=== PATIENT | female | born 1985 | race Caucasian/White ===

== ENCOUNTER 2019-02-28 01:17 | Inpatient (IN) | payer MEDICAID ==
[2019-02-28] VITALS (19 sets, daily range): BP systolic 88–121
[~2019-02-28] VITALS: Ht 152.4 cm; Wt 44.0 kg
[2019-02-28] MEDS ORDERED: LORazepam 2 MG/ML VIAL IVP ONE ×3 (02:00→04:00)
[2019-02-28] MEDS ORDERED: LORazepam 2 MG/ML VIAL ONE ×2 (02:08→04:10)
[2019-02-28 02:29] LABS: BASOPHILS # (AUTO) 0.3 K/uL (0.0-0.2); BASOPHILS % (AUTO) 1.1 % (0.0-2.0); EOSINOPHILS % (AUTO) 0.1 % (0.0-4.0); HEMATOCRIT 28.8 % (36-48); HEMOGLOBIN 8.3 g/dL (12.0-16.0); LYMPHOCYTES # (AUTO) 2.9 K/uL (1.0-5.5); LYMPHOCYTES % (AUTO) 11.7 % (20.5-51.5); MEAN CORPUSCULAR HEMOGLOBIN 19 pg (27-31); MEAN CORPUSCULAR HGB CONC 29 % (32-36); MEAN CORPUSCULAR VOLUME 67 fL (79.0-98.0); MONOCYTES # (AUTO) 1.8 K/uL (0.0-1.0); MONOCYTES % (AUTO) 7.2 % (1.7-9.3); NEUTROPHILS # (AUTO) 19.6 K/uL (1.8-7.7); NEUTROPHILS % (AUTO) 79.9 % (40.0-70.0); PLATELET COUNT (AUTO) 347 K/uL (130-430); RED BLOOD CELL COUNT(AUTO) 4.29 MIL/uL (4.2-6.2); RED CELL DISTRIBUTION WIDTH 18.1 % (9.0-15.0); WHITE BLOOD COUNT (AUTO) 24.5 K/uL (4.8-10.8)
[2019-02-28] MEDS ORDERED: ALBUTEROL SULFATE 0.083% 2.5 MG/3 ML VIAL.NEB INH ONE (02:45)
[2019-02-28 02:51] LABS: INR 1.1 (0.8-1.2)
[2019-02-28 02:55] LABS: CREATININE 1.03 mg/dL (0.55-1.30); POTASSIUM 3.9 mmol/L (3.5-5.1); TOTAL BILIRUBIN 0.3 mg/dL (0.0-1.0)
[2019-02-28 03:14] LABS: ALBUMIN 3.6 g/dL (3.4-4.8); CALCIUM 8.5 mg/dL (8.4-11.0)
[2019-02-28] MEDS ORDERED: NACL 0.9% 1,000 ML IV ONE ×2 (03:15)
[2019-02-28 03:40] LABS: BILIRUBIN,URINE NEGATIVE (NEGATIVE); BLOOD, URINE NEGATIVE (NEGATIVE); CLARITY/URINE CLEAR (CLEAR); COLOR,URINE YELLOW (YELLOW); GLUCOSE,URINE NEGATIVE (NEGATIVE); KETONES,URINE 1+ (NEGATIVE); LEUKOCYTE ESTERASE ,URINE NEGATIVE (NEGATIVE); NITRITE, URINE NEGATIVE (NEGATIVE); PH,URINE 5.5 (5.0-8.0); PROTEIN URINE 1+ (NEGATIVE); UROBILINOGEN,URINE 0.2 (0.2-1.0)
[2019-02-28 03:46] LABS: BACTERIA,URINE FEW /HPF (None Seen); RBC,URINE 0-3 /HPF (0-3); WBC,URINE 0-3 /HPF (0-3)
[2019-02-28] MEDS ORDERED: ACETAMINOPHEN 325 MG TABLET PO PRN (04:30)
[2019-02-28] MEDS ORDERED: ALBUTEROL SULFATE 0.083% 2.5 MG/3 ML VIAL.NEB INH PRN (04:30)
[2019-02-28] MEDS ORDERED: LORazepam 2 MG/ML VIAL IVP PRN (04:30)
[2019-02-28] MEDS ORDERED: ONDANSETRON HCL 4 MG/2 ML VIAL IVP PRN (04:30)
[2019-02-28] MEDS ORDERED: PIPERACILLIN/TAZO 3.375/DEX-IS 50 ML IV SCH (05:00)
[2019-02-28] MEDS ORDERED: levETIRAcetam 1,000 MG IV BAG 100 ML IV SCH (05:00)
[2019-02-28] MEDS ORDERED: PIPERACILLIN/TAZOBACTAM 3.375 GM/VIAL (ZOSYN) IV ONE (06:13)
[2019-02-28] MEDS: NACL 0.9% 1,000 ML IV SCH ×3 (07:14→21:50)
[2019-02-28] MEDS ORDERED: CARB100T PO (07:43)
[2019-02-28] MEDS ORDERED: LEVE500T9 PO (07:43)
[2019-02-28] MEDS ORDERED: DEPS125 PO (07:43)
[2019-02-28 08:11] LABS: BASOPHILS # (AUTO) 0.1 K/uL (0.0-0.2); BASOPHILS % (AUTO) 0.6 % (0.0-2.0); EOSINOPHILS % (AUTO) 0.2 % (0.0-4.0); HEMATOCRIT 22.2 % (36-48); HEMOGLOBIN 7.1 g/dL (12.0-16.0); LYMPHOCYTES # (AUTO) 1.7 K/uL (1.0-5.5); LYMPHOCYTES % (AUTO) 19.2 % (20.5-51.5); MEAN CORPUSCULAR HEMOGLOBIN 20 pg (27-31); MEAN CORPUSCULAR HGB CONC 32 % (32-36); MEAN CORPUSCULAR VOLUME 64 fL (79.0-98.0); MONOCYTES # (AUTO) 0.7 K/uL (0.0-1.0); MONOCYTES % (AUTO) 8.6 % (1.7-9.3); NEUTROPHILS # (AUTO) 6.2 K/uL (1.8-7.7); NEUTROPHILS % (AUTO) 71.4 % (40.0-70.0); PLATELET COUNT (AUTO) 263 K/uL (130-430); RED BLOOD CELL COUNT(AUTO) 3.46 MIL/uL (4.2-6.2); RED CELL DISTRIBUTION WIDTH 17.7 % (9.0-15.0); WHITE BLOOD COUNT (AUTO) 8.7 K/uL (4.8-10.8)
[2019-02-28 08:16] LABS: CALCIUM 7.7 mg/dL (8.4-11.0); CREATININE 0.57 mg/dL (0.55-1.30); POTASSIUM 3.5 mmol/L (3.5-5.1)
[2019-02-28 08:22] LABS: ALBUMIN 2.9 g/dL (3.4-4.8); TOTAL BILIRUBIN 0.3 mg/dL (0.0-1.0)
[2019-02-28] MEDS: PIPERACILLIN/TAZO 3.375/DEX-IS 50 ML IV SCH ×3 (13:08→23:18)
[2019-02-28] MEDS ORDERED: ACETAMINOPHEN 325 MG SUPP.RECT RC PRN (15:15)
[2019-02-28] MEDS ORDERED: D5W IV ONE (15:30)
[2019-02-28] MEDS ORDERED: VALPROATE SODIUM IV ONE (15:30)
[2019-02-28] MEDS ORDERED: GASTROGRAFIN 120 ML ONE (18:52)
[2019-02-28] MEDS ORDERED: DIVALPROEX SODIUM 125 MG CAP.(DEPAKOTE SPRINKLE) PO SCH (21:00)
[2019-02-28] MEDS ORDERED: FAMOTIDINE 20 MG TABLET PO SCH (21:00)
[2019-02-28] MEDS ORDERED: levETIRAcetam 500 MG TABLET PO SCH (21:00)
[2019-02-28] MEDS: VALPROATE SODIUM 500 MG in D5W 100 ML IV SCH (21:48)
[2019-02-28] MEDS: FAMOTIDINE PF 20 MG/2 ML VIAL IVP SCH (21:49)
[2019-02-28] MEDS: levETIRAcetam 1,000 MG IV BAG 100 ML IV SCH (21:49)
[2019-02-28] MEDS ORDERED: VALPROATE SODIUM 100 MG/ML VIAL (DEPACON) IV ONE (21:52)
[2019-03-01] VITALS (20 sets, daily range): BP systolic 100–127
[2019-03-01 06:18] LABS: BASOPHILS % (AUTO) 0.4 % (0.0-2.0); EOSINOPHILS # (AUTO) 0.1 K/uL (0.0-0.4); EOSINOPHILS % (AUTO) 1.3 % (0.0-4.0); HEMATOCRIT 23.1 % (36-48); HEMOGLOBIN 7.1 g/dL (12.0-16.0); LYMPHOCYTES # (AUTO) 2.5 K/uL (1.0-5.5); LYMPHOCYTES % (AUTO) 36.5 % (20.5-51.5); MEAN CORPUSCULAR HEMOGLOBIN 20 pg (27-31); MEAN CORPUSCULAR HGB CONC 31 % (32-36); MEAN CORPUSCULAR VOLUME 65 fL (79.0-98.0); MONOCYTES # (AUTO) 0.6 K/uL (0.0-1.0); MONOCYTES % (AUTO) 8.2 % (1.7-9.3); NEUTROPHILS # (AUTO) 3.7 K/uL (1.8-7.7); NEUTROPHILS % (AUTO) 53.6 % (40.0-70.0); PLATELET COUNT (AUTO) 246 K/uL (130-430); RED BLOOD CELL COUNT(AUTO) 3.57 MIL/uL (4.2-6.2); RED CELL DISTRIBUTION WIDTH 17.9 % (9.0-15.0); WHITE BLOOD COUNT (AUTO) 6.9 K/uL (4.8-10.8)
[2019-03-01 06:32] LABS: ALBUMIN 2.5 g/dL (3.4-4.8); CALCIUM 7.3 mg/dL (8.4-11.0); CREATININE 0.52 mg/dL (0.55-1.30); POTASSIUM 3.3 mmol/L (3.5-5.1); TOTAL BILIRUBIN 0.3 mg/dL (0.0-1.0)
[2019-03-01] MEDS: PIPERACILLIN/TAZO 3.375/DEX-IS 50 ML IV SCH ×4 (06:43→23:56)
[2019-03-01] MEDS: NACL 0.9% 1,000 ML IV SCH ×3 (06:44→20:18)
[2019-03-01] MEDS ORDERED: POTASSIUM CHLORIDE 40 MEQ in NS 250 ML IV ONE (08:30)
[2019-03-01] MEDS: FAMOTIDINE PF 20 MG/2 ML VIAL IVP SCH ×3 (09:24→23:05)
[2019-03-01] MEDS: VALPROATE SODIUM 500 MG in D5W 100 ML IV SCH (09:53)
[2019-03-01] MEDS: levETIRAcetam 1,000 MG IV BAG 100 ML IV SCH ×2 (09:53→21:00)
[2019-03-01] MEDS ORDERED: ACETAMINOPHEN 325 MG TABLET PO PRN (14:30)
[2019-03-01] MEDS ORDERED: DIVALPROEX SODIUM 250 MG TABLET(DEPAKOTE) PO ONE (14:30)
[2019-03-01] MEDS: DIVALPROEX SODIUM 250 MG TABLET(DEPAKOTE) PO SCH ×2 (21:00→23:05)
[2019-03-02 00:26] VITALS: BP_SYST 126
[2019-03-02] MEDS: NACL 0.9% 1,000 ML IV SCH ×3 (04:31→22:34)
[2019-03-02] MEDS: PIPERACILLIN/TAZO 3.375/DEX-IS 50 ML IV SCH ×3 (06:05→18:41)
[2019-03-02 06:37] LABS: BASOPHILS % (AUTO) 0.6 % (0.0-2.0); EOSINOPHILS # (AUTO) 0.1 K/uL (0.0-0.4); HEMATOCRIT 24.7 % (36-48); HEMOGLOBIN 7.8 g/dL (12.0-16.0); LYMPHOCYTES # (AUTO) 1.8 K/uL (1.0-5.5); LYMPHOCYTES % (AUTO) 32.5 % (20.5-51.5); MEAN CORPUSCULAR HEMOGLOBIN 21 pg (27-31); MEAN CORPUSCULAR HGB CONC 31 % (32-36); MEAN CORPUSCULAR VOLUME 68 fL (79.0-98.0); MONOCYTES # (AUTO) 0.5 K/uL (0.0-1.0); MONOCYTES % (AUTO) 8.4 % (1.7-9.3); NEUTROPHILS # (AUTO) 3.1 K/uL (1.8-7.7); NEUTROPHILS % (AUTO) 56.5 % (40.0-70.0); PLATELET COUNT (AUTO) 211 K/uL (130-430); RED BLOOD CELL COUNT(AUTO) 3.62 MIL/uL (4.2-6.2); RED CELL DISTRIBUTION WIDTH 21.9 % (9.0-15.0); WHITE BLOOD COUNT (AUTO) 5.4 K/uL (4.8-10.8)
[2019-03-02 06:40] LABS: ALBUMIN 2.3 g/dL (3.4-4.8); CREATININE 0.45 mg/dL (0.55-1.30); POTASSIUM 3.6 mmol/L (3.5-5.1)
[2019-03-02 06:51] LABS: CALCIUM 6.8 mg/dL (8.4-11.0)
[2019-03-02] MEDS ORDERED: DEXTROSE 50% JECT 50 ML DISP.SYRIN ONE (07:13)
[2019-03-02 07:29] LABS: TOTAL BILIRUBIN 0.5 mg/dL (0.0-1.0)
[2019-03-02 08:05] VITALS: BP_SYST 106
[2019-03-02] MEDS ORDERED: levETIRAcetam 500 MG TABLET PO ONE ×2 (09:45→11:45)
[2019-03-02] MEDS ORDERED: FAMOTIDINE 20 MG TABLET PO ONE (09:45)
[2019-03-02] MEDS ORDERED: DIVALPROEX SODIUM 500 MG TAB.SR.24H (DEPAKOTE ER) PO ONE (11:45)
[2019-03-02 12:43] VITALS: BP_SYST 123
[2019-03-02 16:16] VITALS: BP_SYST 111
[2019-03-02 19:37] VITALS: BP_SYST 108
[2019-03-02] MEDS: FAMOTIDINE 20 MG TABLET PO SCH ×2 (21:00→22:35)
[2019-03-02] MEDS ORDERED: levETIRAcetam 500 MG TABLET PO SCH (21:00)
[2019-03-02] MEDS: levETIRAcetam 500 MG TABLET PO SCH (22:35)
[2019-03-02] MEDS: DIVALPROEX SODIUM 500 MG TAB.SR.24H (DEPAKOTE ER) PO SCH (22:35)
[2019-03-03 02:00] VITALS: BP_SYST 115
[2019-03-03] MEDS: PIPERACILLIN/TAZO 3.375/DEX-IS 50 ML IV SCH ×2 (03:24→07:26)
[2019-03-03] MEDS: NACL 0.9% 1,000 ML IV SCH ×3 (07:25→20:18)
[2019-03-03 07:37] LABS: BASOPHILS % (AUTO) 0.4 % (0.0-2.0); EOSINOPHILS # (AUTO) 0.3 K/uL (0.0-0.4); EOSINOPHILS % (AUTO) 4.4 % (0.0-4.0); HEMATOCRIT 28.7 % (36-48); HEMOGLOBIN 9.2 g/dL (12.0-16.0); LYMPHOCYTES # (AUTO) 2.1 K/uL (1.0-5.5); LYMPHOCYTES % (AUTO) 36.4 % (20.5-51.5); MEAN CORPUSCULAR HEMOGLOBIN 22 pg (27-31); MEAN CORPUSCULAR HGB CONC 32 % (32-36); MEAN CORPUSCULAR VOLUME 68 fL (79.0-98.0); MONOCYTES # (AUTO) 0.5 K/uL (0.0-1.0); NEUTROPHILS # (AUTO) 2.9 K/uL (1.8-7.7); NEUTROPHILS % (AUTO) 50.8 % (40.0-70.0); PLATELET COUNT (AUTO) 238 K/uL (130-430); RED BLOOD CELL COUNT(AUTO) 4.26 MIL/uL (4.2-6.2); RED CELL DISTRIBUTION WIDTH 21.7 % (9.0-15.0); WHITE BLOOD COUNT (AUTO) 5.7 K/uL (4.8-10.8)
[2019-03-03 08:03] VITALS: BP_SYST 126
[2019-03-03] MEDS: DIVALPROEX SODIUM 500 MG TAB.SR.24H (DEPAKOTE ER) PO SCH ×2 (08:31→21:41)
[2019-03-03] MEDS: FAMOTIDINE 20 MG TABLET PO SCH ×2 (08:31→21:42)
[2019-03-03] MEDS: levETIRAcetam 500 MG TABLET PO SCH ×2 (08:31→21:41)
[2019-03-03 12:38] VITALS: BP_SYST 123
[2019-03-03 16:00] VITALS: BP_SYST 123
[2019-03-04 00:20] VITALS: BP_SYST 132
[2019-03-04] MEDS: NACL 0.9% 1,000 ML IV SCH ×2 (00:46→12:18)
[2019-03-04 00:53] VITALS: BP_SYST 133
[2019-03-04 08:00] VITALS: BP_SYST 104
[2019-03-04] MEDS: FAMOTIDINE 20 MG TABLET PO SCH (09:00)
[2019-03-04] MEDS: levETIRAcetam 500 MG TABLET PO SCH (09:12)
[2019-03-04] MEDS: DIVALPROEX SODIUM 500 MG TAB.SR.24H (DEPAKOTE ER) PO SCH (09:12)
[2019-03-04 12:25] VITALS: BP_SYST 120
[2019-03-04 12:42] VITALS: BP_SYST 123
[2019-03-04 16:15] VITALS: BP_SYST 122
== END 2019-03-04 16:06 | disposition home or self-care (01) | DRG 252 ==
LOC: SED 01:17 → SIC 04:18 → STU 03-01 19:51
PROVIDERS: ADMIT Internal Medicine Hospice and Palliative Medicine; ATTEND Internal Medicine Hospice and Palliative Medicine
PROC: 0D20XUZ Change Feeding Device in Upper Intestinal Tract, External Approach (ICD-10-PCS; principal; 2019-02-28)
PROC: 30233N1 Transfusion of Nonautologous Red Blood Cells into Peripheral Vein, Percutaneous Approach (ICD-10-PCS; 2019-03-01)
DX: K94.23 Gastrostomy malfunction (principal); K31.6 Fistula of stomach and duodenum; E46 Unspecified protein-calorie malnutrition; G40.801 Other epilepsy, not intractable, with status epilepticus; R13.10 Dysphagia, unspecified; G80.9 Cerebral palsy, unspecified; J45.909 Unspecified asthma, uncomplicated; D64.9 Anemia, unspecified; Y83.3 Surgical operation with formation of external stoma as the cause of abnormal reaction of the patient, or of later complication, without mention of misadventure at the time of the procedure; Y92.89 Other specified places as the place of occurrence of the external cause; Z91.19 Patient's noncompliance with other medical treatment and regimen; Z68.1 Body mass index [BMI] 19.9 or less, adult
CPT/HCPCS: 36415; 70450-TC; 71045; 72125-TC; 74240-TC; 80053; 80156-TC; 80164-TC; 81000-TC; 82542; 82550-TC; 82962; 83540-TC; 83605; 83880; 84484; 84702-TC; 85025; 85610-TC; 85730-TC; 86886; 86900; 86901; 86920; 87040-TC; 87081; 93005; 94640; 96361; 96365; 96367; 96375; 99285; A6209; G0378; J1953; J1956; J2060; J2543; J3480; J3490; J7030; J7050; J7060; J7613; P9021; Q9963